=== PATIENT | female | born 1990 | race Hispanic/Latino ===

== ENCOUNTER → 2017-07-01 | Day surgery (SDC) | payer OTHER ==
[2017-06-29 16:15] LABS: BASOPHILS % 0.2 % (0.0-1.0); EOSINOPHILS # (AUTO) 0.1 (0.0-0.4); EOSINOPHILS % 0.6 % (0.0-6.0); HEMATOCRIT 38.8 % (34.2-44.1); LYMPHOCYTES # (AUTO) 2.4 (1.0-3.2); LYMPHOCYTES % 29.7 % (18.0-39.1); MEAN CORPUSCULAR HEMOGLOBIN 27.5 pg (28-32); MEAN CORPUSCULAR HGB CONC 33.5 g/dL (31-35); MONOCYTES # (AUTO) 0.6 (0.2-0.8); MONOCYTES % 6.8 % (4.4-11.3); NEUTROPHILS % 62.5 % (38.7-80.0); PLATELET COUNT 232 x10e3/uL (140-360); RED BLOOD COUNT 4.73 x10e6/uL (3.6-5.1)
[~2017-07-01] MED LIST: ACETAMINOPHEN 1000 MG/100 ML IV ONE; BUPIVACAINE 0.25% 30ML SDV INJ ONE; DEXAMETHASONE SOD PHOS INJ 4 MG/ML VIAL ONE; FENTANYL CITRATE/PF 100MCG/2 ML INJ ONE; GLYCOPYRROLATE INJ 1MG/ 5 ML SYR ONE; HYDROCODONE/APAP 7.5MG-325MG 1 EA TAB ONE; LEVOFLOXACIN 500MG/D5W 100ML 100 ML IV ONE; LIDOCAINE HCL 2% LOCAL INJ 5 ML SDV VIAL INJ ONE; MIDAZOLAM HCL 2 MG/2 ML VIAL ONE; NEOSTIGMINE 5 MG/5ML SYR ONE; ONDANSETRON HCL INJ 2 MG/ML VIAL ONE; PROPOFOL IV EMULSION 10 MG/ML 20 ML VIAL ONE; ROCURONIUM BROMIDE 10 MG/ML 5ML VIAL ONE; SEVOFLURANE INHAL SOLN 250 ML PEN BTL ONE; TRIUMEQ PO; [UNRECOGNIZED DRUG - OTHER] PO
--- NOTE | 2017-07-01 14:12 | Operative Report ---
DATE OF PROCEDURE: July 01, 2017 PREOPERATIVE DIAGNOSIS: Cholecystitis and cholelithiasis. POSTOPERATIVE DIAGNOSIS: Cholecystitis and cholelithiasis. OPERATION PERFORMED: Laparoscopic cholecystectomy. ANESTHESIA: General. COMPLICATIONS: None. ESTIMATED BLOOD LOSS: Minimal. DESCRIPTION OF PROCEDURE: With the patient lying in bed in supine position under good general endotracheal anesthesia, the abdomen was prepped with Betadine solution draped in the usual manner. A Veress needle was introduced into the umbilicus, and pneumoperitoneum was established without any difficulty. An 11 mm trocar was placed into the umbilicus, and a 10 mm video laparoscope was placed into the intra-abdominal cavity. Under direct vision, three 5 mm trocars were placed in the right subcostal region. Video laparoscopy at this point revealed a gallbladder that was distended and contained multiple stones. The rest of the abdominal exploration appeared to be within normal limits. The peritoneum overlying the neck of the gallbladder was then opened, and the cystic duct was identified. The cystic duct was followed to its junction with the common duct. Cystic duct was then circumferentially dissected away from the common duct, doubly clipped and divided. The cystic artery had an anterior and a posterior branch, and both of these were individually clipped and divided. The gallbladder was then slowly and carefully taken off of the liver bed using the cautery scissors, and perfect hemostasis was ascertained. The gallbladder was placed in a bag and was removed through the umbilicus without any difficulty. Video laparoscopy was then again carried out. The liver bed was found to be perfectly dry. All of the excess fluid was aspirated. The pneumoperitoneum was evacuated, and all the trocars were removed under direct vision. The midline fascia at the umbilicus was then closed with a [id number] of 0 Vicryl. All layers were infiltrated on the way out with solution of 1/4 percent Marcaine. Subcutaneous tissue was approximated with 3-0 Vicryl, and the skin was closed with subcuticular 5-0 Vicryl. Benzoin, Steri-Strips and Band-Aids were applied. The sponge, lap and needle count was correct. The patient tolerated the procedure well and returned to the recovery room in stable condition. Job#: [id number]
== END | disposition home or self-care (01) ==
LOC: OR 07:56
PROVIDERS: ATTEND Surgery
DX: K80.10 Calculus of gallbladder with chronic cholecystitis without obstruction (principal); Z21 Asymptomatic human immunodeficiency virus [HIV] infection status; E66.9 Obesity, unspecified; K21.9 Gastro-esophageal reflux disease without esophagitis; R06.83 Snoring; F17.200 Nicotine dependence, unspecified, uncomplicated; Z01.812 Encounter for preprocedural laboratory examination
CPT/HCPCS: 36415; 47562; 81025; 85025; 88304; C1766; J1100; J1956; J2001; J2250; J2405